=== PATIENT | male | born 1970 | race Caucasian/White ===

== ENCOUNTER 2018-06-29 06:43 | Inpatient (IN) ==
[2018-06-29] MEDS ORDERED: Albuterol 2.5 MG/3 ML NEBULIZER IH ONE (07:19)
[2018-06-29] MEDS ORDERED: CeFAZolin Syr 3,000MG/30 ML 3,000 MG/30 ML SYRINGE IVPB ONE (07:19)
[2018-06-29] MEDS ORDERED: Ringers Solution, Lactated 1,000 ML IVC SCH ×2 (07:30→12:00)
[2018-06-29] MEDS ORDERED: Lidocaine -MPF 2% 2 ML VIAL ONE (07:43)
[2018-06-29] MEDS ORDERED: *HR* Rocuronium Bromide 50 MG/5 ML VIAL ONE ×2 (07:43→10:09)
[2018-06-29] MEDS ORDERED: *HR* Midazolam HCl 2 MG/2 ML VIAL ONE (07:43)
[2018-06-29] MEDS ORDERED: *HR* Succinylcholine 200 MG/10 ML VIAL IVP ONE (07:43)
[2018-06-29] MEDS ORDERED: *HR* FentaNYL (PF) 100 MCG/2 ML VIAL ONE ×3 (07:43→10:07)
[2018-06-29] MEDS ORDERED: *HR* Propofol 200 MG/20 ML VIAL IVP ONE (07:43)
--- NOTE | 2018-06-29 07:49 | Anesthesia Evaluation PreOp ---
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 History: Denies Any Significant HX Other Medical History: Diabetes Type II, GERD Anesthesia History: Past Anesthesia (denies PSH) Alcohol Use: none Drug use: none Medications and Allergies Aspirin [Lo-Dose Aspirin EC] 81 mg PO DAILY 04/05/18 [History] Simvastatin [Zocor] 40 mg PO HS 04/05/18 [History] Lisinopril [Zestril] 10 mg PO DAILY 04/20/18 [History] Pantoprazole Sodium [Protonix] 40 mg PO DAILY 04/20/18 [History] metFORMIN [Glucophage] 500 mg PO BIDWM 04/20/18 [History] Allergy/AdvReac Type Severity Reaction Status Date / Time No Known Allergies Allergy Verified 04/05/18 08:50 - Meds/Allergy Pre-op Review Medications Reviewed: Yes Allergies Reviewed: Yes Beta Blockers on Current Med List: Yes (patient hasn't taken for months) Anesthesia Results - Labs Laboratory Tests 06/15/18 06/15/18 06/15/18 08:13 08:13 08:13 Hgb 15.0 Hct 46.9 Plt Count 284 PT 11.0 INR 1.0 APTT 34.8 Sodium 139 Potassium 4.5 BUN 14 Creatinine 0.91 - Imaging Additional studies: Indications: Coronary artery disease, Dyspnea on Exertion Impressions: Pharmacologic stress ECG and echocardiogram are negative for ischemia. Findings: Study Quality * Technically adequate exam. Resting Echocardiogram * LVEF 55%. * Normal left ventricular structure and function. Stress Echocardiogram * Normal sinus rhythm at rest. * No arrhythmias noted prior to exam beginning. * Negative for ischemia at the level of heart rate achieved. * No arrhythmias during exercise or recovery. * Hypertension at rest, which worsened with stress. * Appropriate increase LVEF with stress. * No chest pain during stress procedure. Anesthesia Exam Selected Entries 06/29/18 07:25 Temperature 98.3 F Pulse Rate 83 Respiratory Rate 18 Blood Pressure 142/88 O2 Sat by Pulse Oximetry 98 Weight: 126kg BMI 40 NPO (# of Hours): 8 - HEENT Pupil (Motor): EOMI Mallampati: II Teeth: Poor dentition Oral Opening: Greater than 3 - LEATHER CURRIER LEATHER CURRIER Motor: Normal RUE, Normal LUE, Normal RLE, Normal LLE, Normal Face LEATHER CURRIER Sensory: Normal: RUE, LUE, RLE, LLE, Face - Cardiac Rhythm: Regular Murmur: None - Pulmonary Breath Sounds: bilateral Clear Respiratory Effort: Symmetrical Anesthesia Assess/Plan ASA Score: 3 Level of consciousness: Cooperative, Oriented, Tranquil Anesthetic Plan: General Monitoring Plan: Standard Monitors, A-Line (possible but not initially) Recovery Plan: PACU (agrees to GA and a-line if needed)
[2018-06-29] MEDS ORDERED: Heparin 1,000 UNITS/500 mL 1,500 ML ONE (07:55)
--- NOTE | 2018-06-29 08:04 | History & Physical Report ---
Date of Encounter: 06/29/18 Time of Encounter: 07:58 24 Hour HP Update - Instructions Instructions: If the History and Physical is less than 30 days old and was completed prior to A.M. admission and or procedure and has NOT been updated on calendar day of procedure please complete this update prior to performing procedure. - Update Patient reports changes in Medical Condition: No Changes in examination, assessment, or condition: No Changes in Medication: No Preop tests/diagnostics Reviewed: Yes Surgery Remains Indicated: Yes Consent for Planned Operative Procedure(s) Verified: Yes - Pre-Operative Checklist Preoperative Checklist Indicated: Yes Prophylactic Antibiotic Ordered: Yes (vancomycin due to risk of MRSA) Home Medications Include Beta Vini: No Beta Vini Taken Today (Day of Surgery): No Beta Vini Taken Yesterday (Day Prior to Surgery): No Is VTE Prophylaxis Indicated?: Yes
[2018-06-29] MEDS ORDERED: Vancomycin 1,000 MG, Sodium Chloride IRRigation 1,000 ML IR ONE (08:15)
[2018-06-29] MEDS ORDERED: Lacri-Lube 3.5 GM TUBE ONE (08:40)
[2018-06-29] MEDS ORDERED: Vancomycin 1,000 MG VIAL ONE (08:40)
[2018-06-29] MEDS ORDERED: Ondansetron 4 MG/2 ML VIAL ONE (08:53)
[2018-06-29] MEDS ORDERED: Dexamethasone 4 MG/ML VIAL ONE (08:53)
[2018-06-29] MEDS ORDERED: EPHEDrine 50 MG/ML VIAL ONE (09:11)
[2018-06-29] MEDS ORDERED: *HR* Heparin 5,000 UNIT/ML VIAL ONE ×2 (10:00→11:56)
[2018-06-29] MEDS ORDERED: *HR* OxyCODONE/APAP 5/325 TABLET PO PRN (11:50)
[2018-06-29] MEDS ORDERED: Ketorolac 30 MG/ML VIAL IVP ONE (11:51)
[2018-06-29] MEDS ORDERED: *HR* HYDROmorphone (PF) 1 MG/ML SYRINGE IVP PRN (11:51)
[2018-06-29] MEDS ORDERED: Acetaminophen IV 1,000 MG/100 ML INFUS..BTL IVPB ONE (11:51)
[2018-06-29] MEDS ORDERED: Acetaminophen IV 1,000 MG/100 ML INFUS..BTL ONE (11:57)
[2018-06-29] MEDS ORDERED: Neostigmine Methylsulfate 3 MG/3 ML SYRINGE ONE (12:58)
[2018-06-29] MEDS ORDERED: *HR* HYDROMORPHONE 2 MG/ML VIAL ONE (13:06)
--- NOTE | 2018-06-29 13:48 | Operative Note ---
Date of procedure: 06/29/18 Pre-op diagnosis: Peripheral vascular disease with disabling claudication Post-op diagnosis: same Procedure: Left common femoral to below-knee popliteal artery bypass graft with reversed left greater saphenous vein. Complications: None Anesthesia: GETA Surgeon: Cristhian Bush Was there an assistant head cashier present: Yes Rail Car Driver: Zion Cota Estimated blood loss (cc): 100 Specimen: None Condition: stable Disposition: PACU Procedure in Detail: Indications: The patient is a 48-year-old male with a history of hypertension, hyperlipidemia, diabetes, coronary artery disease and tobacco abuse. He presented to vascular clinic with with peripheral vascular disease with severe disabling claudication. He underwent an angiogram and was found to have a left superficial femoral artery and proximal popliteal artery occlusion. Procedure: The patient was identified in the preoperative area. The risks, benefits, and alternatives of the procedure were discussed. All questions were answered. The patient was taken to the operating room and placed in supine position on the operating room table. After the induction of general endotracheal anesthesia, he was cleaned and draped in normal sterile fashion. An oblique incision was made over the left groin sharply. Hemostasis was obtained with electrocautery. Through a process of blunt, sharp, and electrocautery dissection, the left femoral vessels were dissected circumferentially and surrounded with vessel loops. A longitudinal incision was made on the left medial calf sharply. Hemostasis was obtained with electrocautery. Through a process of blunt, sharp, and electrocautery dissection, the left a low popliteal artery was dissected proximally and distally and surrounded with vessel loops. Multiple skin incisions were made along the thigh between the two incisions along the saphenous vein. The saphenous vein was completely mobilized with blunt, sharp, and electrocautery dissection. The side branches were clamped, divided, tied off with 3-0 and 4-0 silk sutures. Distally, the vein was mobilized in the calf, clamped, divided, tied off with silk suture ligature and then further completely mobilized through the incisions. The vein was flushed and noted to be adequate in size and consistency for bypass. A tunnel was created between the femoral and popliteal artery incisions. The vein was reversed. Tension was then applied to the femoral vessel loops. An arteriotomy was made in the left common femoral artery and the vein graft was cut to fit the arteriotomy. The graft was anastamosed with a running 6-0 Prolene. After completing the anastomosis, the vessels were reperfused and pulsatile flow was noted through the vein. The vein was marked without torsion and then it was tunneled between the two incisions. After tunneling, the vein was unclamped and was noted to have strong pulsatile flow once again. The vein was then re-clamped with an atraumatic clamp. The popliteal vessels were occluded and a longitudinal arteriotomy was made in the popliteal artery. The distal end of the graft was sutured in place with a running 6-0 Prolene,. The distal arterial anastomosis was completed and prior to completing the closure, the popliteal vessels were flushed and reoccluded. Heparinized saline was infused into the lumen. The anastamosis was tied and then flow was restored. Polyphasic signals were noted distal to the distal anastomosis as well as at the posterior tibial artery. Wounds were irrigated with antibiotic-containing saline. Thrombin and gelfoam were used to aid in hemostasis. Platelet rich and platelet poor plasma were infused into the wounds. Meticulous hemostasis was obtained throughout the wound with electrocautery. Wounds were reapproximated with layers of 2-0 and 3-0 Vicryl. Skin was reapproximated with 3-0 Monocryl. Sterile dressing was applied. The patient was extubated and taken to recovery room in stable condition.
--- NOTE | 2018-06-29 13:56 | Anesthesia Evaluation Post Op ---
Date of Encounter: 06/29/18 Time of Encounter: 13:55 - Vital Signs Vital Signs: Vital Signs/O2 Sat, Most Current Temp Pulse Resp BP Pulse Ox 98.3 F 82 18 132/84 96 06/29/18 13:53 06/29/18 13:53 06/29/18 13:53 06/29/18 13:53 06/29/18 13:53 - Lungs Lungs: Clear Ascult./Percussion - Airway Airway: Non-obstructed - Cardiovascular Regular Rate - Mental Status Mental Status: Alert & Oriented, Answers Appropriately - Pain Pain Scale: 0 Pain Scale used: Numeric (1 - 10) - Nausea Vomiting Nausea Vomiting: Not Present - Hydration Hydration: Ice chips, Han catheter - Discharge PostOp Status: Transfer Patient to floor
[2018-06-29] MEDS ORDERED: Naloxone 0.4 MG/ML INJ IVP PRN (14:14)
[2018-06-29] MEDS ORDERED: OXYCODONE Oral CONC 10 MG/0.5 ML ORAL.SYG SL PRN ×2 (14:14)
[2018-06-29] MEDS ORDERED: *HR* HYDROcodone/Acet 5/325 mg TABLET PO PRN (14:14)
[2018-06-29] MEDS ORDERED: 0.9 % Sodium Chloride 1,000 ML IVC SCH (14:14)
[2018-06-29] MEDS ORDERED: Dextrose Gel 15 GM/37.5 ML TUBE PO PRN ×2 (14:14)
[2018-06-29] MEDS ORDERED: Acetaminophen 325 MG TABLET PO PRN (14:14)
[2018-06-29] MEDS ORDERED: Ondansetron 4 MG/2 ML VIAL IVP PRN (14:14)
[2018-06-29] MEDS ORDERED: *HR* Dextrose 50 % in Water (Syg) 50 ML SYRINGE IVP PRN (14:14)
[2018-06-29] MEDS ORDERED: *HR* OxyCODONE Immed Rel 5 MG TABLET PO PRN (14:14)
[2018-06-29] MEDS ORDERED: D5% in Water 1,000 ML IVC PRN (14:14)
[2018-06-29] MEDS ORDERED: *HR* Labetalol 20 MG/4 ML SYRINGE IVP PRN (14:14)
[2018-06-29] MEDS ORDERED: Dextrose 4 GM Chewable Tablets PO PRN ×2 (14:14)
--- NOTE | 2018-06-29 15:07 | Operative Note ---
Date of procedure: 06/29/18 Pre-op diagnosis: PAD/claudication Post-op diagnosis: same Procedure: left femoral to below knee popliteal bypass graft using reversed greater saphenous vein Complications: 0 Anesthesia: GETA Surgeon: Cristhian Bush Co-Surgeon: Zion Cota Was there an certified physician's assistant present: No Estimated blood loss (cc): 100 Specimen: 0 Condition: stable Disposition: PACU Procedure in Detail: History Arturo Lopez is a 48-year-old white male with bilateral lower extremity occlusive disease involving the superficial femoral arteries. The patient has lifestyle limiting claudication and he now comes to the operating room for surgical bypass for the left lower extremity. Procedure After informed consent was obtained the patient was taken to the operating room. General endotracheal anesthesia was established. The left lower extremity was sterilely prepped and draped. A timeout protocol was observed. A 2 team surgical approach was utilized for this procedure due to the patient's comorbid conditions. Also to enhance intraoperative complex decision-making in to minimize Locations associated with prolonged general endotracheal anesthesia. An incision was then made in the left groin and then in the left below the knee popliteal region simultaneously. Dissections were carried down so that the arteries could be identified and controlled. The below the knee popliteal artery was found to be very lateral and obscured by the musculature making exposure of this vessel difficult. The greater saphenous vein was then identified and dissected along the length of the medial thigh and proximal calf. This vein was found to be suitable for use as a conduit and was therefore divided distally and irrigated and then removed from the left lower extremity through the interrupted incisions. A subsartorial tunnel was then created. 5000 units of heparin were then administered intravenously. After 3 minute delay common femoral artery was clamped. An end of vein to side of artery anastomosis was then created using 6-0 Prolene suture. The vein was then passed through the subsartorial tunnel. Excellent pulsatility was noted. Then the distal anastomosis was created and decide. As noted above the exposure of the popliteals very difficult due to the depth of the artery and the overlying musculature. After appropriate backbleeding and flushing this bypass was opened and pulsatile flow was restored into the left lower extremity. Doppler signals were identified over the dorsalis pedis and posterior tibial artery at the left ankle. The wounds were then irrigated and there were then closed in layers using absorbable suture. Dry sterile dressings were applied. The patient was extubated in the operating room and taken to the recovery room in stable condition. There were no intraoperative complications.
[2018-06-29] MEDS: *HR* Metoprolol 5 MG/5 ML VIAL IVP SCH (16:53)
[2018-06-29] MEDS: Insulin LISPRO 300 UNITS/3 ML VIAL SQ SCH (16:54)
[2018-06-29] MEDS ORDERED: Insulin LISPRO 300 UNITS/3 ML VIAL SQ SCH (21:00)
[2018-06-30] MEDS: *HR* Metoprolol 5 MG/5 ML VIAL IVP SCH ×2 (04:35→05:51)
[2018-06-30] MEDS ORDERED: *HR* Heparin 5,000 UNIT/ML VIAL SQ SCH ×2 (06:00)
--- NOTE | 2018-06-30 06:50 | Discharge Summary ---
Orders not resulted at time of discharge: Pending orders 06/30/18 04:00 Basic Metabolic Panel AM 0400 Complete Blood Count [HEME] AM 0400 Date of Encounter: 06/30/18 Time of Encounter: 07:50 - Discharge Diagnosis (1) Atherosclerosis of cahto arteries of extremities with intermittent claudication, bilateral legs Priority: Primary Status: Chronic Comments: The patient is postoperative day #1 after left femoral to popliteal artery bypass graft. The patient is alert and comfortable. His compartments are soft. His incisions are healing well. He is able to ambulate. He will be discharged today. (2) Mixed hyperlipidemia Priority: Secondary Status: Chronic Comments: The patient was counseled regarding atherosclerotic risk factor reduction. (3) Diabetes mellitus with peripheral angiopathy without gangrene Priority: Secondary Status: Chronic Qualifiers: Diabetes mellitus type: type 2 Diabetes mellitus nursing home insulin use: without regional intermodal truck driver use Qualified Code(s): E11.51 - Type 2 diabetes mellitus with diabetic peripheral angiopathy without gangrene (4) Tobacco abuse Priority: Secondary Status: Chronic (5) Postoperative anemia due to acute blood loss Priority: Secondary Status: Chronic Comments: The patient is a cute extremity postoperative blood loss anemia. He is hemodynamically stable without evidence of ongoing blood loss. - Hospital Course Hospital course: Mr. Lopez is a 48 year old male with a history of diabetes, hyperlipidemia, tobacco abuse and peripheral vascular disease with disabling claudication. The patient was admitted on 06/29/2018. He was taken to the operating room and underwent a left femoral to popliteal artery bypass. He tolerated the procedure well. On postoperative day #1 he was alert and comfortable. His wounds are healing. His compartments are soft. His pain was well-controlled. He was noted to have acute expected postoperative blood loss anemia without evidence of ongoing blood loss. The patient was discharged on postoperative day #1 stable condition without complication. Time spent discussing smoking cessation with patient: 3 to 10 minutes - Time Spent with Patient Total time spent providing and/or coordinating discharge services: - Discharge Medications Prescriptions: New RX: OxyCODONE/APAP 5/325 [Percocet 5/325 MG] 1 each PO Q6HR PRN 7 Days #25 tablet PRN Reason: Postoperative pain Continue RX: Simvastatin [Zocor] 40 mg PO HS RX: Aspirin [Lo-Dose Aspirin EC] 81 mg PO DAILY RX: Lisinopril [Zestril] 10 mg PO DAILY RX: metFORMIN [Glucophage] 500 mg PO BIDWM RX: Pantoprazole Sodium [Protonix] 40 mg PO DAILY RX: hydrOXYzine HCl [Hydroxyzine HCl] 50 mg PO HS PRN PRN Reason: Sleep RX: Melatonin 10 mg PO HS PRN PRN Reason: Sleep Home Medications: RX: Aspirin [Lo-Dose Aspirin EC] 81 mg PO DAILY 04/05/18 [History] RX: Simvastatin [Zocor] 40 mg PO HS 04/05/18 [History] RX: Lisinopril [Zestril] 10 mg PO DAILY 04/20/18 [History] RX: Pantoprazole Sodium [Protonix] 40 mg PO DAILY 04/20/18 [History] RX: metFORMIN [Glucophage] 500 mg PO BIDWM 04/20/18 [History] RX: Melatonin 10 mg PO HS PRN 06/29/18 [History] RX: hydrOXYzine HCl [Hydroxyzine HCl] 50 mg PO HS PRN 06/29/18 [History] RX: OxyCODONE/APAP 5/325 [Percocet 5/325 MG] 1 each PO Q6HR PRN 7 Days #25 tablet 06/30/18 [Rx] Allergies/Adverse Reactions: Allergy/AdvReac Type Severity Reaction Status Date / Time No Known Allergies Allergy Verified 06/29/18 14:23 Date of admission: 06/29/18 14:08 Primary care physician: Torie Serrato CNP Procedure(s) Performed: Left femoral to below-knee popliteal artery bypass graft. Discharging clinician: Cristhian Bush Anticipated date of discharge: 06/30/18 Exam Vital Signs, Last 4 Hours Temp Pulse Resp BP Pulse Ox 06/30/18 04:09 98.4 F 61 20 141/79 96 General: Present: Conversant, No Apparent Distress HEENT: Present: Pupils equal Neck: Absent: JVD Cardiac: Present: Reg Rate and Rhythm Lungs: Present: Normal Breath Sounds Neuro: Present: Alert and responsive Abdomen: Present: Soft Vascular: Present: Normal capillary refill, Pulse, diminished (Right lower extremity), Pulse, normal (Left lower extremity), Surgical incisions (Clean, dry and intact without erythema or drainage, no hematoma). Absent: Cyanosis, Edema Skin: Present: No rashes noted on visualized skin - Patient Status Disposition: Home, Self-Care Condition: Good Functional capacity at discharge: independent ambulation Overall status at discharge: patient is back to baseline - Discharge Instructions Instructions: Oxycodone/Acetaminophen (By mouth), How to Stop Smoking (DC), Cigarette Smoking and Your Health (GEN) Follow Up With: Cristhian Bush MD [Partnered Physician] - 07/19/18 2:30 pm Torie Serrato CNP [Primary Care Provider] - 07/05/18 1:00 pm Additional Instructions: May remove bandages and shower on 07/01/2018. Wash wound gently and pat to dry. No tub baths or swimming until 07/26/2018. Applied dry gauze to wounds daily for 7 days. Call [phone] with questions or concerns. - Diet and Activity Activity: increase activity as tolerated Diet: diabetic diet
[2018-06-30 07:20] LABS: Basophils % 0.1 %; Eosinophils % 0.1 %; Hematocrit 38.7 % (37.5-50.1); Hemoglobin 12.4 g/dL (12.9-16.9); Immature Granulocytes % 0.4 % (0-4); Lymphocytes # 1.4 K/mcL (0.6-4.6); Lymphocytes % 9.8 %; Mean Corpuscular Hemoglobin 26.9 pg (28.0-33.3); Mean Corpuscular Volume 83.9 fL (83.0-100.0); Mean Platelet Volume 9.8 fL (9.4-12.4); Monocytes # 1.4 K/mcL (0.0-1.3); Monocytes % 9.7 %; Neutrophils # 11.5 K/mcL (1.6-8.9); Platelet Count 205 K/mcL (140-400); Red Blood Count 4.61 M/mcL (4.19-5.50); Red Cell Distribution Width 16.9 % (11.5-14.5); Segmented Neutrophils % 79.9 %
[2018-06-30 08:17] VITALS: BP 130/74
[2018-06-30] MEDS: Insulin LISPRO 300 UNITS/3 ML VIAL SQ SCH (08:31)
[2018-06-30] MEDS ORDERED: Aspirin Enteric Coated 81 MG Tablet PO SCH (09:00)
[2018-06-30 09:13] LABS: BUN/Creatinine Ratio 8 (6-26); Blood Urea Nitrogen 7 mg/dL (6-20); Calcium 9.1 mg/dL (8.6-10.3); Carbon Dioxide 26 mEq/L (23-29); Chloride 107 mEq/L (98-107); Glucose 158 mg/dL (70-105); Osmolality,Calculated 289 (280-300); Potassium 4.4 mEq/L (3.5-5.1); Sodium 139 mEq/L (136-145); eGFR For Non-African Americans > 60 (> 60)
== END 2018-06-30 11:52 | disposition home or self-care (01) | DRG 181 ==
LOC: SAMDAY 06:43 → 2NNU 14:08
PROVIDERS: ADMIT Surgery; ATTEND Surgery

== ENCOUNTER 2019-02-07 08:23 | Inpatient (IN) ==
[2019-02-07] MEDS ORDERED: Heparin 1,000 UNITS/500 mL 500 ML ONE (08:47)
[2019-02-07] MEDS ORDERED: Vancomycin 1,000 MG VIAL ONE (08:47)
[2019-02-07] MEDS ORDERED: Vancomycin 1,000 MG, Sodium Chloride IRRigation 1,000 ML IR ONE (09:00)
[2019-02-07] MEDS ORDERED: Albuterol 2.5 MG/3 ML NEBULIZER IH ONE (09:02)
[2019-02-07] MEDS ORDERED: CeFAZolin Syr 2,000MG/20 ML 2,000 MG/20 ML SYRINGE IVPB ONE (09:02)
[2019-02-07] MEDS ORDERED: Ondansetron 4 MG/2 ML VIAL IVP ONE (09:12)
[2019-02-07] MEDS ORDERED: *HR* HYDROmorphone (PF) 1 MG/ML SYRINGE IVP PRN (09:12)
[2019-02-07] MEDS ORDERED: *HR* OxyCODONE Immed Rel 5 MG TABLET PO PRN ×3 (09:12→14:16)
[2019-02-07] MEDS ORDERED: Ringers Solution, Lactated 1,000 ML IVC SCH (09:15)
[2019-02-07] MEDS ORDERED: Calcium Gluconate 1,000 MG/10 ML VIAL ONE (11:06)
[2019-02-07] MEDS ORDERED: *HR* Labetalol 20 MG/4 ML SYRINGE IVP ONE (13:23)
[2019-02-07] MEDS: *HR* Labetalol 20 MG/4 ML SYRINGE IVP PRN ×2 (13:25→13:31)
[2019-02-07] MEDS ORDERED: *HR* HYDROcodone/Acet 5/325 mg TABLET PO PRN ×2 (14:16)
[2019-02-07] MEDS ORDERED: NON-FORMULARY MEDICATION 1 EACH EACH (Diclofenac Sodium [Voltaren] 1 APPL) TP PRN (14:16)
[2019-02-07] MEDS ORDERED: 0.9 % Sodium Chloride 1,000 ML IVC SCH (14:16)
[2019-02-07] MEDS ORDERED: *HR* Labetalol 20 MG/4 ML SYRINGE IVP PRN (14:16)
[2019-02-07] MEDS ORDERED: D5% in Water 1,000 ML IVC PRN (14:16)
[2019-02-07] MEDS ORDERED: Melatonin 3 MG TABLET PO PRN (14:16)
[2019-02-07] MEDS ORDERED: Acetaminophen 325 MG TABLET PO PRN ×2 (14:16)
[2019-02-07] MEDS ORDERED: Ondansetron 4 MG/2 ML VIAL IVP PRN (14:16)
[2019-02-07] MEDS ORDERED: *HR* Dextrose 50 % in Water (Syg) 50 ML SYRINGE IVP PRN (14:16)
[2019-02-07] MEDS ORDERED: Dextrose Gel 15 GM/37.5 ML TUBE PO PRN ×2 (14:16)
[2019-02-07] MEDS ORDERED: Naloxone 0.4 MG/ML INJ IVP PRN (14:16)
[2019-02-07] MEDS: *HR* Metoprolol 5 MG/5 ML VIAL IVP SCH ×3 (15:02→23:51)
[2019-02-07] MEDS: Gabapentin 300 MG CAPSULE PO SCH ×2 (15:03→20:48)
[2019-02-07] MEDS ORDERED: hydrOXYzine pamoate 25 MG CAPSULE PO PRN (21:00)
[2019-02-07] MEDS ORDERED: traZODone 50 MG TABLET PO SCH (21:00)
[2019-02-08 01:09] LABS: BUN/Creatinine Ratio 13 (6-26); Blood Urea Nitrogen 10 mg/dL (6-20); Calcium 8.9 mg/dL (8.6-10.3); Carbon Dioxide 26 mEq/L (23-29); Chloride 105 mEq/L (98-107); Glucose 188 mg/dL (70-105); Osmolality,Calculated 290 (280-300); Potassium 4.4 mEq/L (3.5-5.1); Sodium 138 mEq/L (136-145); eGFR For African Americans > 60 (> 60); eGFR For Non-African Americans > 60 (> 60)
[2019-02-08 01:17] LABS: Basophils % 0.2 %; Hematocrit 40.8 % (37.5-50.1); Immature Granulocytes % 0.7 % (0-4); Lymphocytes # 1.2 K/mcL (0.6-4.6); Mean Corpuscular HGB Conc 29.4 g/dL (31.6-35.5); Mean Corpuscular Volume 78.2 fL (83.0-100.0); Mean Platelet Volume 9.3 fL (9.4-12.4); Monocytes # 0.6 K/mcL (0.0-1.3); Monocytes % 4.1 %; Platelet Count 275 K/mcL (140-400); Red Blood Count 5.22 M/mcL (4.19-5.50); Red Cell Distribution Width 21.2 % (11.5-14.5)
[2019-02-08] MEDS ORDERED: *HR* Heparin 5,000 UNIT/ML VIAL SQ SCH ×2 (06:00)
[2019-02-08] MEDS: *HR* Metoprolol 5 MG/5 ML VIAL IVP SCH (06:26)
[2019-02-08] MEDS: Gabapentin 300 MG CAPSULE PO SCH (07:47)
[2019-02-08 07:53] VITALS: BP 124/85
[2019-02-08] MEDS ORDERED: Aspirin Enteric Coated 81 MG Tablet PO SCH (09:00)
[2019-02-08] MEDS ORDERED: FLU Vac QV 19-20 (6Month+)/PF 0.5 ML SYRINGE IM ONE (10:23)
== END 2019-02-08 11:10 | disposition home or self-care (01) | DRG 169 ==
LOC: SAMDAY 08:23 → 2NNU 14:01
PROVIDERS: ADMIT Surgery; ATTEND Surgery

== ENCOUNTER 2019-03-09 07:52 | Inpatient (IN) ==
[2019-03-09] MEDS ORDERED: Albuterol 2.5 MG/3 ML NEBULIZER IH PRN (08:38)
[2019-03-09] MEDS ORDERED: CeFAZolin Syr 2,000MG/20 ML 2,000 MG/20 ML SYRINGE IVPB ONE (08:38)
[2019-03-09] MEDS ORDERED: Ringers Solution, Lactated 1,000 ML IVC SCH (08:45)
[2019-03-09] MEDS ORDERED: *HR* Midazolam HCl 5 MG/5 ML VIAL IVP ONE (09:26)
[2019-03-09] MEDS ORDERED: *HR* FentaNYL (PF) 100 MCG/2 ML VIAL ONE ×2 (09:26→10:37)
[2019-03-09] MEDS ORDERED: *HR* HYDROmorphone (PF) 1 MG/ML SYRINGE IVP PRN (09:30)
[2019-03-09] MEDS ORDERED: Ondansetron 4 MG/2 ML VIAL IVP ONE (09:30)
[2019-03-09] MEDS ORDERED: *HR* OxyCODONE Immed Rel 5 MG TABLET PO PRN ×2 (09:30→13:35)
[2019-03-09] MEDS ORDERED: Ropivacaine/PF 0.5% 30 ML VIAL ONE ×2 (09:35→09:50)
[2019-03-09] MEDS ORDERED: ROPIVACAINE/PF/NS 0.25% 1 EACH SYRINGE INTRAART ONE (09:36)
[2019-03-09] MEDS ORDERED: Propofol 500 MG/50 ML INFUS..BTL ONE ×2 (09:57→11:33)
[2019-03-09] MEDS ORDERED: Lidocaine -MPF 2% 2 ML VIAL ONE (09:59)
[2019-03-09] MEDS ORDERED: Dexamethasone 4 MG/ML VIAL ONE (10:45)
[2019-03-09] MEDS ORDERED: Ondansetron 4 MG/2 ML VIAL ONE (10:45)
[2019-03-09] MEDS ORDERED: Calcium Gluconate 1,000 MG/10 ML VIAL ONE (10:53)
[2019-03-09] MEDS ORDERED: Vancomycin (wt based) 1,000 MG VIAL IVPB ONE (10:55)
[2019-03-09] MEDS ORDERED: *HR* Propofol 200 MG/20 ML VIAL IVP ONE (12:13)
[2019-03-09] MEDS ORDERED: Vancomycin 1,000 MG, Sodium Chloride IRRigation 1,000 ML IR ONE (13:30)
[2019-03-09] MEDS ORDERED: Naloxone 0.4 MG/ML INJ IVP PRN (13:35)
[2019-03-09] MEDS ORDERED: *HR* Dextrose 50 % in Water (Syg) 50 ML SYRINGE IVP PRN (13:35)
[2019-03-09] MEDS ORDERED: *HR* Labetalol 20 MG/4 ML SYRINGE IVP PRN (13:35)
[2019-03-09] MEDS ORDERED: Acetaminophen 325 MG TABLET PO PRN ×2 (13:35)
[2019-03-09] MEDS ORDERED: 0.9 % Sodium Chloride 1,000 ML IVC SCH (13:35)
[2019-03-09] MEDS ORDERED: Ondansetron 4 MG/2 ML VIAL IVP PRN (13:35)
[2019-03-09] MEDS ORDERED: D5% in Water 1,000 ML IVC PRN (13:35)
[2019-03-09] MEDS ORDERED: *HR* HYDROcodone/Acet 5/325 mg TABLET PO PRN (13:35)
[2019-03-09] MEDS ORDERED: Dextrose Gel 15 GM/37.5 ML TUBE PO PRN ×2 (13:35)
[2019-03-09] MEDS: Gabapentin 300 MG CAPSULE PO SCH ×2 (16:50→20:57)
[2019-03-09] MEDS: *HR* Metoprolol 5 MG/5 ML VIAL IVP SCH (17:17)
[2019-03-09] MEDS: Insulin LISPRO 300 UNITS/3 ML VIAL SQ SCH ×2 (17:22→20:59)
[2019-03-09] MEDS: Ammonium Lactate 30 APPL/225 GM BOTTLE TP SCH (20:57)
[2019-03-09] MEDS: traZODone 50 MG TABLET PO SCH (20:58)
[2019-03-09] MEDS ORDERED: Vancomycin 1,750 MG in 0.9 % Sodium Chloride 250 ML IVPB ONE (21:00)
[2019-03-10] MEDS: *HR* Metoprolol 5 MG/5 ML VIAL IVP SCH ×5 (00:09→23:50)
[2019-03-10 05:16] LABS: Basophils % 0.1 %; Eosinophils % 0.1 %; Hematocrit 36.1 % (37.5-50.1); Hemoglobin 11.1 g/dL (12.9-16.9); Immature Granulocytes % 0.7 % (0-4); Lymphocytes # 0.7 K/mcL (0.6-4.6); Lymphocytes % 5.1 %; Mean Corpuscular HGB Conc 30.7 g/dL (31.6-35.5); Mean Corpuscular Hemoglobin 23.8 pg (28.0-33.3); Mean Corpuscular Volume 77.5 fL (83.0-100.0); Mean Platelet Volume 9.2 fL (9.4-12.4); Monocytes # 0.8 K/mcL (0.0-1.3); Monocytes % 6.1 %; Neutrophils # 11.9 K/mcL (1.6-8.9); Platelet Count 298 K/mcL (140-400); Red Blood Count 4.66 M/mcL (4.19-5.50); Segmented Neutrophils % 87.9 %; White Blood Count 13.5 K/mcL (4.3-11.1)
[2019-03-10 05:35] LABS: BUN/Creatinine Ratio 15 (6-26); Blood Urea Nitrogen 11 mg/dL (6-20); Calcium 9.1 mg/dL (8.6-10.3); Carbon Dioxide 30 mEq/L (23-29); Chloride 101 mEq/L (98-107); Glucose 161 mg/dL (70-105); Osmolality,Calculated 285 (280-300); Potassium 4.6 mEq/L (3.5-5.1); Sodium 136 mEq/L (136-145); eGFR For African Americans > 60 (> 60); eGFR For Non-African Americans > 60 (> 60)
[2019-03-10] MEDS ORDERED: *HR* Heparin 5,000 UNIT/ML VIAL SQ SCH (06:00)
[2019-03-10] MEDS: *HR* Heparin 5,000 UNIT/ML VIAL SQ SCH ×2 (06:19→17:16)
[2019-03-10] MEDS: Aspirin Enteric Coated 81 MG Tablet PO SCH (08:29)
[2019-03-10] MEDS: Gabapentin 300 MG CAPSULE PO SCH ×3 (08:29→20:35)
[2019-03-10] MEDS: Insulin LISPRO 300 UNITS/3 ML VIAL SQ SCH ×4 (08:29→20:29)
[2019-03-10] MEDS: Ammonium Lactate 30 APPL/225 GM BOTTLE TP SCH ×2 (08:30→20:39)
[2019-03-10] MEDS: *HR* OxyCODONE Immed Rel 5 MG TABLET PO PRN ×2 (11:46→20:35)
[2019-03-10] MEDS: *HR* HYDROcodone/Acet 5/325 mg TABLET PO PRN ×2 (17:00→23:53)
[2019-03-10] MEDS: traZODone 50 MG TABLET PO SCH (20:35)
[2019-03-11 04:38] LABS: Hemoglobin 11.1 g/dL (12.9-16.9); Mean Corpuscular HGB Conc 30.8 g/dL (31.6-35.5); Mean Corpuscular Hemoglobin 24.1 pg (28.0-33.3); Mean Corpuscular Volume 78.3 fL (83.0-100.0); Mean Platelet Volume 9.1 fL (9.4-12.4); Platelet Count 283 K/mcL (140-400); Segmented Neutrophils % 71.8 %; White Blood Count 11.6 K/mcL (4.3-11.1)
[2019-03-11 04:39] LABS: Basophils # 0.1 K/mcL (0.0-0.2); Basophils % 0.4 %; Eosinophils # 0.1 K/mcL (0.0-0.6); Eosinophils % 0.4 %; Immature Granulocytes % 0.3 % (0-4); Lymphocytes # 2.1 K/mcL (0.6-4.6); Lymphocytes % 17.8 %; Monocytes # 1.1 K/mcL (0.0-1.3); Monocytes % 9.3 %; Neutrophils # 8.3 K/mcL (1.6-8.9)
[2019-03-11 04:58] LABS: BUN/Creatinine Ratio 14 (6-26); Blood Urea Nitrogen 10 mg/dL (6-20); Calcium 9.2 mg/dL (8.6-10.3); Carbon Dioxide 29 mEq/L (23-29); Chloride 99 mEq/L (98-107); Glucose 126 mg/dL (70-105); Osmolality,Calculated 281 (280-300); Potassium 3.6 mEq/L (3.5-5.1); Sodium 135 mEq/L (136-145); eGFR For African Americans > 60 (> 60); eGFR For Non-African Americans > 60 (> 60)
[2019-03-11] MEDS: *HR* Heparin 5,000 UNIT/ML VIAL SQ SCH ×2 (05:26→16:49)
[2019-03-11] MEDS: *HR* OxyCODONE Immed Rel 5 MG TABLET PO PRN ×3 (05:26→23:27)
[2019-03-11] MEDS: *HR* Metoprolol 5 MG/5 ML VIAL IVP SCH ×4 (05:27→23:30)
[2019-03-11] MEDS: Insulin LISPRO 300 UNITS/3 ML VIAL SQ SCH ×4 (07:36→19:55)
[2019-03-11] MEDS: Gabapentin 300 MG CAPSULE PO SCH ×3 (07:49→19:47)
[2019-03-11] MEDS: Aspirin Enteric Coated 81 MG Tablet PO SCH (07:50)
[2019-03-11] MEDS: Ammonium Lactate 30 APPL/225 GM BOTTLE TP SCH ×2 (07:54→23:07)
[2019-03-11] MEDS: *HR* HYDROcodone/Acet 5/325 mg TABLET PO PRN ×2 (08:02→19:50)
[2019-03-11] MEDS: traZODone 50 MG TABLET PO SCH (19:47)
[2019-03-12] MEDS: *HR* Metoprolol 5 MG/5 ML VIAL IVP SCH (05:50)
[2019-03-12] MEDS: *HR* Heparin 5,000 UNIT/ML VIAL SQ SCH (05:50)
[2019-03-12] MEDS: Insulin LISPRO 300 UNITS/3 ML VIAL SQ SCH ×2 (08:48→11:47)
[2019-03-12] MEDS: Gabapentin 300 MG CAPSULE PO SCH (08:52)
[2019-03-12] MEDS: Aspirin Enteric Coated 81 MG Tablet PO SCH (08:52)
[2019-03-12] MEDS: Ammonium Lactate 30 APPL/225 GM BOTTLE TP SCH (08:53)
[2019-03-12 11:38] VITALS: BP 148/88
== END 2019-03-12 13:27 | DRG 305 ==
LOC: SAMDAY 07:52 → OBSVTOIN 13:31 → 3NENU 13:31 → INTOOBSV 13:31
PROVIDERS: ADMIT Surgery; ATTEND Surgery

== ENCOUNTER 2019-04-19 17:12 | Observation (INO) ==
[2019-04-19] MEDS ORDERED: Acetaminophen 325 MG TABLET PO PRN (23:09)
[2019-04-19] MEDS ORDERED: Naloxone 0.4 MG/ML INJ IVP PRN (23:09)
[2019-04-19] MEDS ORDERED: D5% in Water 1,000 ML IVC PRN (23:44)
[2019-04-19] MEDS ORDERED: Dextrose Gel 15 GM/37.5 ML TUBE PO PRN ×2 (23:44)
[2019-04-19] MEDS ORDERED: *HR* Dextrose 50 % in Water (Syg) 50 ML SYRINGE IVP PRN (23:44)
[2019-04-20] MEDS: Piperacillin/Tazobactam 3.375 GM in 0.9 % Sodium Chloride Mini Bag 100 ML IVPB SCH ×3 (00:54→17:34)
[2019-04-20 01:03] LABS: Basophils # 0.1 K/mcL (0.0-0.2); Basophils % 1.1 %; Eosinophils # 0.1 K/mcL (0.0-0.6); Eosinophils % 1.8 %; Hematocrit 40.5 % (37.5-50.1); Hemoglobin 12.7 g/dL (12.9-16.9); Immature Granulocytes % 0.3 % (0-4); Immature Platelets 3.2 % (1.1-6.1); Lymphocytes % 13.7 %; Mean Corpuscular HGB Conc 31.4 g/dL (31.6-35.5); Mean Corpuscular Hemoglobin 23.6 pg (28.0-33.3); Mean Corpuscular Volume 75.4 fL (83.0-100.0); Mean Platelet Volume 9.5 fL (9.4-12.4); Monocytes # 1.1 K/mcL (0.0-1.3); Monocytes % 15.4 %; Platelet Count 233 K/mcL (140-400); Red Blood Count 5.37 M/mcL (4.19-5.50); Red Cell Distribution Width 18.6 % (11.5-14.5); Segmented Neutrophils % 67.7 %; White Blood Count 7.4 K/mcL (4.3-11.1)
[2019-04-20 01:06] LABS: BUN/Creatinine Ratio 10 (6-26); Blood Urea Nitrogen 8 mg/dL (6-20); Calcium 9.6 mg/dL (8.6-10.3); Carbon Dioxide 30 mEq/L (23-29); Chloride 97 mEq/L (98-107); Glucose 97 mg/dL (70-105); Osmolality,Calculated 278 (280-300); Potassium 4.1 mEq/L (3.5-5.1); Sodium 135 mEq/L (136-145); eGFR For African Americans > 60 (> 60); eGFR For Non-African Americans > 60 (> 60)
[2019-04-20] MEDS: Insulin LISPRO 300 UNITS/3 ML VIAL SQ SCH ×5 (01:14→17:34)
[2019-04-20] MEDS: traZODone 50 MG TABLET PO SCH ×2 (01:37→22:06)
[2019-04-20] MEDS: *HR* Heparin 5,000 UNIT/ML VIAL SQ SCH ×3 (06:08→22:07)
[2019-04-20] MEDS: Ipratropium/Albuterol Neb 3 ML IH SCH ×3 (09:52→22:38)
[2019-04-20] MEDS: predniSONE 20 MG TABLET PO SCH (10:15)
[2019-04-20] MEDS: Aspirin Enteric Coated 81 MG Tablet PO SCH (10:16)
[2019-04-20] MEDS: Gabapentin 300 MG CAPSULE PO SCH ×3 (10:16→22:06)
[2019-04-20] MEDS ORDERED: Insulin LISPRO 300 UNITS/3 ML VIAL SQ SCH (16:30)
[2019-04-21] MEDS: Piperacillin/Tazobactam 3.375 GM in 0.9 % Sodium Chloride Mini Bag 100 ML IVPB SCH ×2 (01:03→09:08)
[2019-04-21] MEDS: Ipratropium/Albuterol Neb 3 ML IH SCH ×2 (04:19→09:53)
[2019-04-21] MEDS: *HR* Heparin 5,000 UNIT/ML VIAL SQ SCH ×2 (06:40→16:16)
[2019-04-21 07:19] LABS: Basophils % 0.5 %; Eosinophils % 0.3 %; Hematocrit 40.9 % (37.5-50.1); Hemoglobin 12.5 g/dL (12.9-16.9); Immature Granulocytes % 0.3 % (0-4); Lymphocytes # 1.5 K/mcL (0.6-4.6); Lymphocytes % 23.2 %; Mean Corpuscular HGB Conc 30.6 g/dL (31.6-35.5); Mean Corpuscular Hemoglobin 23.3 pg (28.0-33.3); Mean Corpuscular Volume 76.3 fL (83.0-100.0); Mean Platelet Volume 9.5 fL (9.4-12.4); Monocytes # 0.6 K/mcL (0.0-1.3); Monocytes % 9.4 %; Neutrophils # 4.3 K/mcL (1.6-8.9); Platelet Count 304 K/mcL (140-400); Red Blood Count 5.36 M/mcL (4.19-5.50); Segmented Neutrophils % 66.3 %; White Blood Count 6.5 K/mcL (4.3-11.1)
[2019-04-21 07:23] LABS: Prothrombin Time 11.3 Seconds (9.4-12.1)
[2019-04-21 07:46] LABS: BUN/Creatinine Ratio 11 (6-26); Blood Urea Nitrogen 10 mg/dL (6-20); Calcium 9.1 mg/dL (8.6-10.3); Carbon Dioxide 29 mEq/L (23-29); Chloride 100 mEq/L (98-107); Glucose 122 mg/dL (70-105); Osmolality,Calculated 290 (280-300); Potassium 3.3 mEq/L (3.5-5.1); Sodium 140 mEq/L (136-145); eGFR For African Americans > 60 (> 60); eGFR For Non-African Americans > 60 (> 60)
[2019-04-21] MEDS: predniSONE 20 MG TABLET PO SCH (09:09)
[2019-04-21] MEDS: Aspirin Enteric Coated 81 MG Tablet PO SCH (09:09)
[2019-04-21] MEDS: Gabapentin 300 MG CAPSULE PO SCH ×2 (09:09→16:16)
[2019-04-21] MEDS: Insulin LISPRO 300 UNITS/3 ML VIAL SQ SCH ×3 (09:10→17:53)
[2019-04-21 16:06] VITALS: BP 145/86
[2019-04-21] MEDS ORDERED: Aminoglycoside Consult 1 EACH MC ONE (18:22)
== END 2019-04-21 18:23 | disposition home health service (06) ==
LOC: 3ANU → SUATTDRO 19:05
PROVIDERS: ADMIT Internal Medicine; ATTEND Internal Medicine

== ENCOUNTER 2019-06-02 10:03 | Inpatient (IN) ==
[2019-06-02] MEDS ORDERED: Piperacillin/Tazobactam 3.375 GM in Water for inj. (sterile) 20 ML IVP ONE (10:27)
[2019-06-02] MEDS ORDERED: 0.9 % Sodium Chloride 1,000 ML IVC ONE (10:27)
[2019-06-02] MEDS ORDERED: Morphine Sulfate 2 MG/ML SYRINGE IVP ONE ×3 (10:28→15:57)
[2019-06-02] MEDS ORDERED: Isovue-370 500 ML BOTTLE IVP ONE ×2 (10:46→13:50)
[2019-06-02 11:55] LABS: Basophils # 0.1 K/mcL (0.0-0.2); Basophils % 1.1 %; Eosinophils # 0.2 K/mcL (0.0-0.6); Eosinophils % 1.4 %; Hematocrit 40.7 % (37.5-50.1); Hemoglobin 12.8 g/dL (12.9-16.9); Immature Granulocytes % 0.5 % (0-4); Lymphocytes # 1.8 K/mcL (0.6-4.6); Lymphocytes % 16.7 %; Mean Corpuscular HGB Conc 31.4 g/dL (31.6-35.5); Mean Corpuscular Hemoglobin 23.3 pg (28.0-33.3); Mean Corpuscular Volume 74.1 fL (83.0-100.0); Mean Platelet Volume 9.4 fL (9.4-12.4); Monocytes % 9.2 %; Neutrophils # 7.9 K/mcL (1.6-8.9); Platelet Count 404 K/mcL (140-400); Red Blood Count 5.49 M/mcL (4.19-5.50); Red Cell Distribution Width 19.2 % (11.5-14.5); Segmented Neutrophils % 71.1 %
[2019-06-02 12:00] LABS: Prothrombin Time 11.9 Seconds (9.4-12.1)
[2019-06-02 12:03] LABS: Activated Partial Thrombo Time 32.7 Seconds (26.0-36.0)
[2019-06-02 12:15] LABS: Alanine Aminotransferase 8 Units/L (7-52); Albumin 3.9 g/dL (3.5-5.7); Albumin/Globulin Ratio 1.3 (1.1-2.2); Alkaline Phosphatase 89 Units/L (34-104); Aspartate Amino Transferase 10 Units/L (13-39); BUN/Creatinine Ratio 6 (6-26); Bilirubin,Direct 0.1 mg/dL (0.0-0.2); Bilirubin,Indirect 0.1 mg/dL (0.0-1.0); Bilirubin,Total 0.2 mg/dL (0.3-1.0); Blood Urea Nitrogen 5 mg/dL (6-20); Carbon Dioxide 29 mEq/L (23-29); Chloride 99 mEq/L (98-107); Globulin 2.9 g/dL (2.4-3.5); Glucose 125 mg/dL (70-105); Magnesium 1.9 mg/dL (1.6-2.6); Osmolality,Calculated 281 (280-300); Sodium 136 mEq/L (136-145); Total Protein 6.8 g/dL (6.4-8.9); Troponin I < 0.03 ng/mL (< 0.04); eGFR For African Americans > 60 (> 60); eGFR For Non-African Americans > 60 (> 60)
[2019-06-02] MEDS ORDERED: Naloxone 0.4 MG/ML INJ IVP PRN (15:20)
[2019-06-02 15:51] LABS: C-Reactive Protein 20 mg/L (Less than 10)
[2019-06-02] MEDS ORDERED: Vancomycin 0 MG in 0.9 % Sodium Chloride 250 ML IVPB SCH (16:00)
[2019-06-02] MEDS ORDERED: Nicotine 21 MG PATCH.TD24 TD PRN (16:10)
[2019-06-02] MEDS ORDERED: D5% in Water 1,000 ML IVC PRN (16:10)
[2019-06-02] MEDS ORDERED: *HR* Dextrose 50 % in Water (Syg) 50 ML SYRINGE IVP PRN (16:10)
[2019-06-02] MEDS ORDERED: Dextrose Gel 15 GM/37.5 ML TUBE PO PRN ×2 (16:10)
[2019-06-02] MEDS ORDERED: tiZANidine 4 MG TABLET PO PRN (16:11)
[2019-06-02] MEDS ORDERED: Ipratropium/Albuterol Neb 3 ML IH PRN (16:12)
[2019-06-02] MEDS: Insulin LISPRO 300 UNITS/3 ML VIAL SQ SCH ×2 (18:14→20:58)
[2019-06-02] MEDS: *HR* Heparin 5,000 UNIT/ML VIAL SQ SCH (18:21)
[2019-06-02] MEDS: traZODone 50 MG TABLET PO SCH (20:41)
[2019-06-02] MEDS: Gabapentin 400 MG CAPSULE PO SCH (20:42)
[2019-06-02] MEDS: Piperacillin/Tazobactam 3.375 GM in 0.9 % Sodium Chloride Mini Bag 100 ML IVPB SCH (20:42)
[2019-06-02] MEDS: Ketorolac 30 MG/ML VIAL IVP PRN (20:46)
[2019-06-03] MEDS: Piperacillin/Tazobactam 3.375 GM in 0.9 % Sodium Chloride Mini Bag 100 ML IVPB SCH ×3 (04:33→22:08)
[2019-06-03 05:43] LABS: Basophils # 0.1 K/mcL (0.0-0.2); Basophils % 1.1 %; Eosinophils # 0.3 K/mcL (0.0-0.6); Eosinophils % 4.5 %; Hematocrit 38.2 % (37.5-50.1); Hemoglobin 11.6 g/dL (12.9-16.9); Immature Granulocytes % 0.3 % (0-4); Lymphocytes # 1.7 K/mcL (0.6-4.6); Lymphocytes % 24.2 %; Mean Corpuscular HGB Conc 30.4 g/dL (31.6-35.5); Mean Corpuscular Hemoglobin 22.9 pg (28.0-33.3); Mean Corpuscular Volume 75.3 fL (83.0-100.0); Mean Platelet Volume 9.1 fL (9.4-12.4); Monocytes # 0.8 K/mcL (0.0-1.3); Monocytes % 10.6 %; Neutrophils # 4.2 K/mcL (1.6-8.9); Platelet Count 370 K/mcL (140-400); Red Blood Count 5.07 M/mcL (4.19-5.50); Segmented Neutrophils % 59.3 %; White Blood Count 7.1 K/mcL (4.3-11.1)
[2019-06-03 06:03] LABS: BUN/Creatinine Ratio 9 (6-26); Blood Urea Nitrogen 9 mg/dL (6-20); Calcium 8.8 mg/dL (8.6-10.3); Carbon Dioxide 31 mEq/L (23-29); Chloride 101 mEq/L (98-107); Glucose 121 mg/dL (70-105); Osmolality,Calculated 284 (280-300); Potassium 4.3 mEq/L (3.5-5.1); Sodium 137 mEq/L (136-145); eGFR For African Americans > 60 (> 60); eGFR For Non-African Americans > 60 (> 60)
[2019-06-03] MEDS: *HR* Heparin 5,000 UNIT/ML VIAL SQ SCH (06:22)
[2019-06-03] MEDS: Gabapentin 400 MG CAPSULE PO SCH ×3 (09:23→22:09)
[2019-06-03] MEDS: Aspirin Enteric Coated 81 MG Tablet PO SCH (09:23)
[2019-06-03] MEDS: Insulin LISPRO 300 UNITS/3 ML VIAL SQ SCH ×4 (09:24→22:21)
[2019-06-03] MEDS ORDERED: *HR* Heparin 5,000 UNIT/ML VIAL IVP PRN ×2 (12:01)
[2019-06-03] MEDS ORDERED: *HR* Heparin 5,000 UNIT/ML VIAL IVP ONE (12:01)
[2019-06-03 12:58] LABS: Hematocrit 39.2 % (37.5-50.1); Hemoglobin 11.6 g/dL (12.9-16.9); Mean Corpuscular HGB Conc 29.6 g/dL (31.6-35.5); Mean Corpuscular Hemoglobin 23.3 pg (28.0-33.3); Mean Corpuscular Volume 78.7 fL (83.0-100.0); Mean Platelet Volume 8.5 fL (9.4-12.4); Platelet Count 345 K/mcL (140-400); Red Blood Count 4.98 M/mcL (4.19-5.50); Red Cell Distribution Width 18.6 % (11.5-14.5); White Blood Count 7.9 K/mcL (4.3-11.1)
[2019-06-03 13:24] LABS: Prothrombin Time 11.4 Seconds (9.4-12.1)
[2019-06-03] MEDS: Heparin 25,000 UNIT/250 ML D5W 25,000 UNIT/250 ML IV.SOLN IVC SCH (13:38)
[2019-06-03] MEDS: traZODone 50 MG TABLET PO SCH (22:09)
[2019-06-03] MEDS: Insulin DETEMIR 100 UNIT/ML X5UNITS SQ SCH (22:10)
[2019-06-04] MEDS: Ketorolac 30 MG/ML VIAL IVP PRN (00:07)
[2019-06-04] MEDS: Piperacillin/Tazobactam 3.375 GM in 0.9 % Sodium Chloride Mini Bag 100 ML IVPB SCH ×2 (03:52→13:40)
[2019-06-04] MEDS: Heparin 25,000 UNIT/250 ML D5W 25,000 UNIT/250 ML IV.SOLN IVC SCH ×2 (06:00→23:02)
[2019-06-04] MEDS: Insulin LISPRO 300 UNITS/3 ML VIAL SQ SCH ×4 (07:41→19:55)
[2019-06-04] MEDS: Aspirin Enteric Coated 81 MG Tablet PO SCH (07:52)
[2019-06-04] MEDS: Gabapentin 400 MG CAPSULE PO SCH ×3 (07:52→20:07)
[2019-06-04] MEDS ORDERED: Aminoglycoside Consult 1 EACH MC ONE (08:36)
[2019-06-04] MEDS: traZODone 50 MG TABLET PO SCH (20:07)
[2019-06-04] MEDS: Insulin DETEMIR 100 UNIT/ML X5UNITS SQ SCH (20:11)
[2019-06-05 05:24] LABS: Basophils # 0.1 K/mcL (0.0-0.2); Eosinophils # 0.3 K/mcL (0.0-0.6); Eosinophils % 3.8 %; Hematocrit 38.8 % (37.5-50.1); Immature Granulocytes % 0.5 % (0-4); Lymphocytes # 1.5 K/mcL (0.6-4.6); Lymphocytes % 18.9 %; Mean Corpuscular HGB Conc 30.9 g/dL (31.6-35.5); Mean Corpuscular Hemoglobin 22.8 pg (28.0-33.3); Mean Corpuscular Volume 73.8 fL (83.0-100.0); Mean Platelet Volume 9.1 fL (9.4-12.4); Monocytes # 0.7 K/mcL (0.0-1.3); Monocytes % 8.3 %; Neutrophils # 5.3 K/mcL (1.6-8.9); Platelet Count 404 K/mcL (140-400); Red Blood Count 5.26 M/mcL (4.19-5.50); Red Cell Distribution Width 18.6 % (11.5-14.5); Segmented Neutrophils % 67.5 %; White Blood Count 7.8 K/mcL (4.3-11.1)
[2019-06-05 05:44] LABS: BUN/Creatinine Ratio 7 (6-26); Blood Urea Nitrogen 6 mg/dL (6-20); Calcium 9.5 mg/dL (8.6-10.3); Carbon Dioxide 29 mEq/L (23-29); Chloride 100 mEq/L (98-107); Glucose 111 mg/dL (70-105); Magnesium 1.8 mg/dL (1.6-2.6); Osmolality,Calculated 280 (280-300); Phosphorous 3.4 mg/dL (2.7-4.5); Potassium 4.3 mEq/L (3.5-5.1); Sodium 136 mEq/L (136-145); eGFR For African Americans > 60 (> 60); eGFR For Non-African Americans > 60 (> 60)
[2019-06-05] MEDS: Insulin LISPRO 300 UNITS/3 ML VIAL SQ SCH ×4 (07:44→22:42)
[2019-06-05] MEDS: Gabapentin 400 MG CAPSULE PO SCH ×3 (08:35→20:02)
[2019-06-05] MEDS: Aspirin Enteric Coated 81 MG Tablet PO SCH (08:35)
[2019-06-05] MEDS: Ketorolac 30 MG/ML VIAL IVP PRN (09:42)
[2019-06-05] MEDS: Heparin 25,000 UNIT/250 ML D5W 25,000 UNIT/250 ML IV.SOLN IVC SCH (16:38)
[2019-06-05] MEDS: traZODone 50 MG TABLET PO SCH (20:02)
[2019-06-05] MEDS: Insulin DETEMIR 100 UNIT/ML X5UNITS SQ SCH (22:42)
[2019-06-06] MEDS ORDERED: Vancomycin 1,000 MG, Sodium Chloride IRRigation 1,000 ML IR ONE (06:00)
[2019-06-06] MEDS: Insulin LISPRO 300 UNITS/3 ML VIAL SQ SCH ×2 (08:31→11:51)
[2019-06-06] MEDS ORDERED: *HR* Rocuronium Bromide 50 MG/5 ML VIAL ONE (10:11)
[2019-06-06] MEDS ORDERED: Lidocaine -MPF 2% 2 ML VIAL ONE (10:11)
[2019-06-06] MEDS ORDERED: Dexamethasone 4 MG/ML VIAL ONE (10:11)
[2019-06-06] MEDS ORDERED: *HR* Phenylephrine 10 MG/ML VIAL ONE (10:11)
[2019-06-06] MEDS ORDERED: Ondansetron 4 MG/2 ML VIAL ONE (10:11)
[2019-06-06] MEDS ORDERED: *HR* Propofol 200 MG/20 ML VIAL IVP ONE (10:28)
[2019-06-06] MEDS ORDERED: *HR* FentaNYL (PF) 100 MCG/2 ML VIAL ONE ×3 (10:40→17:29)
[2019-06-06] MEDS ORDERED: *HR* Midazolam HCl 2 MG/2 ML VIAL ONE (10:40)
[2019-06-06] MEDS ORDERED: *HR* OxyCODONE Immed Rel 5 MG TABLET PO PRN ×2 (11:41→18:32)
[2019-06-06] MEDS ORDERED: Ondansetron 4 MG/2 ML VIAL IVP ONE (11:41)
[2019-06-06] MEDS ORDERED: *HR* HYDROmorphone (PF) 1 MG/ML SYRINGE IVP PRN (11:41)
[2019-06-06] MEDS ORDERED: Ringers Solution, Lactated 1,000 ML IVC SCH (11:45)
[2019-06-06] MEDS: Gabapentin 400 MG CAPSULE PO SCH ×2 (11:50→22:16)
[2019-06-06] MEDS: Aspirin Enteric Coated 81 MG Tablet PO SCH (11:50)
[2019-06-06] MEDS ORDERED: Heparin 1,000 UNITS/500 mL 1,000 ML ONE (11:56)
[2019-06-06] MEDS ORDERED: Vancomycin 1,000 MG VIAL ONE ×2 (12:14→12:21)
[2019-06-06] MEDS ORDERED: Heparin 1,000 UNITS/500 mL 500 ML ONE (12:14)
[2019-06-06] MEDS ORDERED: CeFAZolin Syr 3,000MG/30 ML 3,000 MG/30 ML SYRINGE IVPB ONE (12:46)
[2019-06-06] MEDS ORDERED: *HR* Heparin 5,000 UNIT/ML VIAL ONE ×2 (14:57→15:53)
[2019-06-06 14:59] LABS: ABG Base Excess 5 mEq/L (-2 to 3); ABG HCO3 30 mEq/L (21-27); ABG Oxygen Saturation 98 % (95-98); ABG PCO2 46 mmHg (35-45); ABG PH 7.42 pH Units (7.32-7.45); ABG PO2 101 mmHg (85-104); ABG TCO2 31 mEq/L (20-26); Blood Gas Modality ASSIST CONTROL; Blood Gas VT 500 cc
[2019-06-06] MEDS ORDERED: Ringers Solution, Lactated 1,000 ML ONE (17:58)
[2019-06-06] MEDS ORDERED: Ipratropium/Albuterol Neb 3 ML IH PRN (18:32)
[2019-06-06] MEDS ORDERED: Dextrose Gel 15 GM/37.5 ML TUBE PO PRN ×2 (18:32)
[2019-06-06] MEDS ORDERED: tiZANidine 4 MG TABLET PO PRN (18:32)
[2019-06-06] MEDS ORDERED: *HR* HYDROcodone/Acet 5/325 mg TABLET PO PRN ×2 (18:32)
[2019-06-06] MEDS ORDERED: D5% in Water 1,000 ML IVC PRN (18:32)
[2019-06-06] MEDS ORDERED: *HR* Labetalol 20 MG/4 ML SYRINGE IVP PRN (18:32)
[2019-06-06] MEDS ORDERED: Acetaminophen 325 MG TABLET PO PRN ×2 (18:32)
[2019-06-06] MEDS ORDERED: Naloxone 0.4 MG/ML INJ IVP PRN (18:32)
[2019-06-06] MEDS ORDERED: 0.9 % Sodium Chloride 1,000 ML IVC SCH (18:32)
[2019-06-06] MEDS ORDERED: Ondansetron 4 MG/2 ML VIAL IVP PRN (18:32)
[2019-06-06] MEDS ORDERED: Nicotine 21 MG PATCH.TD24 TD PRN (18:32)
[2019-06-06] MEDS ORDERED: *HR* Dextrose 50 % in Water (Syg) 50 ML SYRINGE IVP PRN (18:32)
[2019-06-06] MEDS ORDERED: hydrOXYzine pamoate 25 MG CAPSULE PO SCH (21:00)
[2019-06-06] MEDS ORDERED: traZODone 50 MG TABLET PO SCH (21:00)
[2019-06-06] MEDS ORDERED: Insulin LISPRO 300 UNITS/3 ML VIAL SQ SCH (21:00)
[2019-06-06] MEDS ORDERED: Insulin DETEMIR 100 UNIT/ML X5UNITS SQ SCH (21:00)
[2019-06-06] MEDS: *HR* Metoprolol 5 MG/5 ML VIAL IVP SCH (22:14)
[2019-06-06] MEDS: ceFAZolin 2,000 MG in 0.9 % Sodium Chloride 100 ML IVPB SCH (22:16)
[2019-06-07] MEDS: *HR* OxyCODONE Immed Rel 5 MG TABLET PO PRN ×2 (00:10→11:58)
[2019-06-07 02:28] LABS: Basophils % 0.3 %; Immature Granulocytes % 0.6 % (0-4); Lymphocytes # 1.1 K/mcL (0.6-4.6); Lymphocytes % 9.1 %; Mean Corpuscular HGB Conc 30.6 g/dL (31.6-35.5); Mean Corpuscular Hemoglobin 22.7 pg (28.0-33.3); Mean Corpuscular Volume 74.2 fL (83.0-100.0); Monocytes # 0.9 K/mcL (0.0-1.3); Monocytes % 7.9 %; Neutrophils # 9.6 K/mcL (1.6-8.9); Platelet Count 350 K/mcL (140-400); Red Blood Count 4.31 M/mcL (4.19-5.50); Red Cell Distribution Width 18.3 % (11.5-14.5); Segmented Neutrophils % 82.1 %; White Blood Count 11.7 K/mcL (4.3-11.1)
[2019-06-07 02:37] LABS: BUN/Creatinine Ratio 9 (6-26); Blood Urea Nitrogen 6 mg/dL (6-20); Calcium 8.6 mg/dL (8.6-10.3); Carbon Dioxide 27 mEq/L (23-29); Chloride 101 mEq/L (98-107); Glucose 115 mg/dL (70-105); Osmolality,Calculated 277 (280-300); Potassium 4.3 mEq/L (3.5-5.1); Sodium 134 mEq/L (136-145); eGFR For African Americans > 60 (> 60); eGFR For Non-African Americans > 60 (> 60)
[2019-06-07 02:45] LABS: Hemoglobin 9.8 g/dL (12.9-16.9)
[2019-06-07] MEDS: ceFAZolin 2,000 MG in 0.9 % Sodium Chloride 100 ML IVPB SCH (05:27)
[2019-06-07] MEDS: *HR* Metoprolol 5 MG/5 ML VIAL IVP SCH ×2 (05:28→11:58)
[2019-06-07] MEDS: Insulin LISPRO 300 UNITS/3 ML VIAL SQ SCH ×2 (08:17→11:58)
[2019-06-07] MEDS: Gabapentin 400 MG CAPSULE PO SCH (08:29)
[2019-06-07] MEDS ORDERED: Aspirin Enteric Coated 81 MG Tablet PO SCH (09:00)
[2019-06-07 11:14] VITALS: BP 161/93
== END 2019-06-07 13:34 | disposition home or self-care (01) | DRG 181 ==
LOC: 2NNU 10:03 → EMEROOARM 10:03 → SUATTDRO 16:08 → 2NNU 17:52
PROVIDERS: ADMIT Internal Medicine; ATTEND Internal Medicine

== ENCOUNTER 2019-07-13 09:07 | Inpatient (IN) ==
[2019-07-13] MEDS ORDERED: 0.9 % Sodium Chloride 1,000 ML IVC ONE (09:53)
[2019-07-13 10:13] LABS: Hematocrit 38.5 % (37.5-50.1); Hemoglobin 11.4 g/dL (12.9-16.9); Mean Corpuscular HGB Conc 29.6 g/dL (31.6-35.5); Mean Corpuscular Hemoglobin 22.3 pg (28.0-33.3); Mean Corpuscular Volume 75.2 fL (83.0-100.0); Mean Platelet Volume 9.2 fL (9.4-12.4); Platelet Count 353 K/mcL (140-400); Red Blood Count 5.12 M/mcL (4.19-5.50); Red Cell Distribution Width 18.6 % (11.5-14.5); White Blood Count 10.3 K/mcL (4.3-11.1)
[2019-07-13 10:32] LABS: BUN/Creatinine Ratio 9 (6-26); Blood Urea Nitrogen 7 mg/dL (6-20); Calcium 9.9 mg/dL (8.6-10.3); Carbon Dioxide 27 mEq/L (23-29); Chloride 99 mEq/L (98-107); Glucose 98 mg/dL (70-105); Osmolality,Calculated 276 (280-300); Potassium 4.5 mEq/L (3.5-5.1); Sodium 134 mEq/L (136-145); eGFR For African Americans > 60 (> 60); eGFR For Non-African Americans > 60 (> 60)
[2019-07-13] MEDS ORDERED: Piperacillin/Tazobactam 3.375 GM in 0.9 % Sodium Chloride Mini Bag 100 ML IVPB ONE (11:27)
[2019-07-13] MEDS ORDERED: Clindamycin 900 MG/50 ML 900 MG/50 ML IV.SOLN IVPB ONE (11:41)
[2019-07-13] MEDS: Gabapentin 400 MG CAPSULE PO SCH ×2 (13:50→20:29)
[2019-07-13] MEDS: *HR* OxyCODONE/APAP 10/325 TABLET PO PRN ×2 (14:48→20:56)
[2019-07-13] MEDS: Insulin LISPRO 300 UNITS/3 ML VIAL SQ SCH (15:39)
[2019-07-13] MEDS ORDERED: Clindamycin 600 MG/50 ML 600 MG/50 ML IV.SOLN IVPB SCH (16:00)
[2019-07-13] MEDS: Piperacillin/Tazobactam 3.375 GM in 0.9 % Sodium Chloride Mini Bag 100 ML IVPB SCH (20:35)
[2019-07-13] MEDS: Clindamycin 600 MG/50 ML 600 MG/50 ML IV.SOLN IVPB SCH (20:58)
[2019-07-13] MEDS ORDERED: traZODone 50 MG TABLET PO SCH (21:00)
[2019-07-13] MEDS ORDERED: hydrOXYzine pamoate 25 MG CAPSULE PO SCH (21:00)
[2019-07-13] MEDS ORDERED: Insulin LISPRO 300 UNITS/3 ML VIAL SQ SCH (21:00)
[2019-07-13] MEDS: *HR* Heparin 5,000 UNIT/ML VIAL SQ SCH (21:02)
[2019-07-14] MEDS: *HR* OxyCODONE/APAP 10/325 TABLET PO PRN ×2 (02:53→11:10)
[2019-07-14] MEDS: Piperacillin/Tazobactam 3.375 GM in 0.9 % Sodium Chloride Mini Bag 100 ML IVPB SCH ×2 (04:26→11:11)
[2019-07-14] MEDS: *HR* Heparin 5,000 UNIT/ML VIAL SQ SCH ×3 (05:10→22:38)
[2019-07-14] MEDS: Clindamycin 600 MG/50 ML 600 MG/50 ML IV.SOLN IVPB SCH ×3 (05:18→22:37)
[2019-07-14] MEDS: Gabapentin 400 MG CAPSULE PO SCH ×3 (07:17→22:40)
[2019-07-14] MEDS: Insulin LISPRO 300 UNITS/3 ML VIAL SQ SCH ×4 (07:17→22:42)
[2019-07-14] MEDS ORDERED: Vancomycin 1,000 MG, Sodium Chloride IRRigation 1,000 ML IR ONE (08:00)
[2019-07-14] MEDS ORDERED: Aspirin Enteric Coated 81 MG Tablet PO SCH (09:00)
[2019-07-14] MEDS ORDERED: Albuterol 2.5 MG/3 ML NEBULIZER IH ONE (16:20)
[2019-07-14] MEDS ORDERED: Albuterol 2.5 MG/3 ML NEBULIZER ONE (16:21)
[2019-07-14] MEDS ORDERED: *HR* Propofol 200 MG/20 ML VIAL IVP ONE ×2 (16:42→17:29)
[2019-07-14] MEDS ORDERED: Lidocaine HCL 4 ML Topical Solution (Laryng-O-Jet Kit Sterile Pak) TP ONE (17:29)
[2019-07-14] MEDS ORDERED: *HR* FentaNYL (PF) 100 MCG/2 ML VIAL ONE ×2 (17:29→18:16)
[2019-07-14] MEDS ORDERED: Lidocaine -MPF 2% 2 ML VIAL ONE (17:29)
[2019-07-14] MEDS ORDERED: *HR* Succinylcholine 200 MG/10 ML VIAL IVP ONE (17:29)
[2019-07-14] MEDS ORDERED: *HR* HYDROmorphone PF 0.5 MG/0.5 ML SYRINGE IVP PRN (17:36)
[2019-07-14] MEDS ORDERED: Ondansetron 4 MG/2 ML VIAL IVP ONE (17:36)
[2019-07-14] MEDS ORDERED: *HR* Promethazine 25 MG/ML VIAL IVP PRN (17:36)
[2019-07-14] MEDS ORDERED: *HR* Labetalol 20 MG/4 ML SYRINGE IVP PRN ×2 (17:36→20:29)
[2019-07-14] MEDS ORDERED: *HR* HYDROmorphone (PF) 1 MG/ML SYRINGE IVP PRN (17:45)
[2019-07-14] MEDS ORDERED: Famotidine 20 MG/2 ML VIAL ONE (18:08)
[2019-07-14] MEDS ORDERED: Acetaminophen IV 1,000 MG/100 ML INFUS..BTL ONE (18:08)
[2019-07-14] MEDS ORDERED: *HR* HYDROMORPHONE 2 MG/ML VIAL ONE (18:12)
[2019-07-14] MEDS ORDERED: Ondansetron 4 MG/2 ML VIAL ONE (18:12)
[2019-07-14] MEDS ORDERED: *HR* Rocuronium Bromide 50 MG/5 ML VIAL ONE (18:22)
[2019-07-14] MEDS ORDERED: 0.9 % Sodium Chloride 500 ML ONE (20:05)
[2019-07-14] MEDS ORDERED: Naloxone 0.4 MG/ML INJ IVP PRN (20:29)
[2019-07-14] MEDS ORDERED: 0.9 % Sodium Chloride 1,000 ML IVC SCH (20:29)
[2019-07-14] MEDS ORDERED: *HR* OxyCODONE Immed Rel 5 MG TABLET PO PRN (20:29)
[2019-07-14] MEDS ORDERED: Ondansetron 4 MG/2 ML VIAL IVP PRN (20:29)
[2019-07-14] MEDS ORDERED: *HR* HYDROcodone/Acet 5/325 mg TABLET PO PRN (20:29)
[2019-07-14] MEDS ORDERED: Acetaminophen 325 MG TABLET PO PRN ×2 (20:29)
[2019-07-14] MEDS ORDERED: *HR* OxyCODONE/APAP 10/325 TABLET PO PRN (20:29)
[2019-07-14] MEDS ORDERED: Dexmedetomidine HCl 400 MCG/100 ML MLS IVC ONE (21:51)
[2019-07-14] MEDS: traZODone 50 MG TABLET PO SCH (22:40)
[2019-07-14] MEDS: hydrOXYzine pamoate 25 MG CAPSULE PO SCH (22:40)
[2019-07-14] MEDS: *HR* OxyCODONE Immed Rel 5 MG TABLET PO PRN (22:58)
[2019-07-15 02:01] LABS: Basophils # 0.1 K/mcL (0.0-0.2); Basophils % 0.3 %; Eosinophils # 0.1 K/mcL (0.0-0.6); Eosinophils % 0.4 %; Hematocrit 34.2 % (37.5-50.1); Immature Granulocytes % 0.5 % (0-4); Lymphocytes % 6.7 %; Mean Corpuscular HGB Conc 29.2 g/dL (31.6-35.5); Mean Corpuscular Hemoglobin 21.8 pg (28.0-33.3); Mean Corpuscular Volume 74.7 fL (83.0-100.0); Mean Platelet Volume 8.8 fL (9.4-12.4); Monocytes # 1.1 K/mcL (0.0-1.3); Monocytes % 7.5 %; Neutrophils # 12.7 K/mcL (1.6-8.9); Platelet Count 325 K/mcL (140-400); Red Blood Count 4.58 M/mcL (4.19-5.50); Red Cell Distribution Width 18.5 % (11.5-14.5); Segmented Neutrophils % 84.6 %
[2019-07-15 03:55] LABS: BUN/Creatinine Ratio 8 (6-26); Blood Urea Nitrogen 5 mg/dL (6-20); Calcium 8.9 mg/dL (8.6-10.3); Carbon Dioxide 26 mEq/L (23-29); Chloride 100 mEq/L (98-107); Glucose 126 mg/dL (70-105); Osmolality,Calculated 271 (280-300); Potassium 4.3 mEq/L (3.5-5.1); Sodium 131 mEq/L (136-145); eGFR For African Americans > 60 (> 60); eGFR For Non-African Americans > 60 (> 60)
[2019-07-15] MEDS: Piperacillin/Tazobactam 3.375 GM in 0.9 % Sodium Chloride Mini Bag 100 ML IVPB SCH ×3 (04:23→20:07)
[2019-07-15] MEDS: *HR* Heparin 5,000 UNIT/ML VIAL SQ SCH ×3 (04:24→20:08)
[2019-07-15] MEDS: Clindamycin 600 MG/50 ML 600 MG/50 ML IV.SOLN IVPB SCH ×3 (04:29→20:06)
[2019-07-15 05:08] LABS: Vancomycin,Trough 12 mcg/mL (5-10)
[2019-07-15] MEDS: *HR* OxyCODONE Immed Rel 5 MG TABLET PO PRN ×3 (06:16→20:07)
[2019-07-15] MEDS: Insulin LISPRO 300 UNITS/3 ML VIAL SQ SCH ×4 (08:17→20:08)
[2019-07-15] MEDS: Aspirin Enteric Coated 81 MG Tablet PO SCH (09:11)
[2019-07-15] MEDS: Gabapentin 400 MG CAPSULE PO SCH ×3 (09:11→20:07)
[2019-07-15] MEDS: *HR* HYDROcodone/Acet 5/325 mg TABLET PO PRN ×3 (09:20→23:52)
[2019-07-15] MEDS: hydrOXYzine pamoate 25 MG CAPSULE PO SCH (20:07)
[2019-07-15] MEDS: traZODone 50 MG TABLET PO SCH (20:07)
[2019-07-16] MEDS: *HR* Heparin 5,000 UNIT/ML VIAL SQ SCH ×3 (04:22→20:44)
[2019-07-16] MEDS: *HR* OxyCODONE Immed Rel 5 MG TABLET PO PRN (04:22)
[2019-07-16] MEDS: Piperacillin/Tazobactam 3.375 GM in 0.9 % Sodium Chloride Mini Bag 100 ML IVPB SCH ×3 (06:05→22:53)
[2019-07-16] MEDS: Clindamycin 600 MG/50 ML 600 MG/50 ML IV.SOLN IVPB SCH (06:05)
[2019-07-16] MEDS: Insulin LISPRO 300 UNITS/3 ML VIAL SQ SCH ×4 (07:16→20:33)
[2019-07-16] MEDS: *HR* HYDROcodone/Acet 5/325 mg TABLET PO PRN ×2 (07:18→17:15)
[2019-07-16] MEDS: Gabapentin 400 MG CAPSULE PO SCH ×3 (07:18→20:29)
[2019-07-16] MEDS: Aspirin Enteric Coated 81 MG Tablet PO SCH (07:18)
[2019-07-16 10:14] LABS: Basophils # 0.1 K/mcL (0.0-0.2); Basophils % 0.5 %; Eosinophils # 0.4 K/mcL (0.0-0.6); Eosinophils % 3.4 %; Hematocrit 33.7 % (37.5-50.1); Hemoglobin 10.2 g/dL (12.9-16.9); Immature Granulocytes % 0.4 % (0-4); Lymphocytes # 1.2 K/mcL (0.6-4.6); Lymphocytes % 10.4 %; Mean Corpuscular HGB Conc 30.3 g/dL (31.6-35.5); Mean Corpuscular Hemoglobin 22.9 pg (28.0-33.3); Mean Corpuscular Volume 75.6 fL (83.0-100.0); Mean Platelet Volume 9.2 fL (9.4-12.4); Monocytes % 8.3 %; Neutrophils # 9.1 K/mcL (1.6-8.9); Platelet Count 341 K/mcL (140-400); Red Blood Count 4.46 M/mcL (4.19-5.50); Red Cell Distribution Width 18.4 % (11.5-14.5); White Blood Count 11.8 K/mcL (4.3-11.1)
[2019-07-16 10:30] LABS: BUN/Creatinine Ratio 7 (6-26); Blood Urea Nitrogen 5 mg/dL (6-20); Calcium 9.1 mg/dL (8.6-10.3); Carbon Dioxide 29 mEq/L (23-29); Chloride 98 mEq/L (98-107); Glucose 139 mg/dL (70-105); Osmolality,Calculated 278 (280-300); Potassium 3.8 mEq/L (3.5-5.1); Sodium 134 mEq/L (136-145); eGFR For African Americans > 60 (> 60); eGFR For Non-African Americans > 60 (> 60)
[2019-07-16] MEDS: Lactobacillus 1 EACH CAP.SPRINK PO SCH ×2 (17:08→20:44)
[2019-07-16] MEDS: hydrOXYzine pamoate 25 MG CAPSULE PO SCH (20:28)
[2019-07-16] MEDS: traZODone 50 MG TABLET PO SCH (20:29)
[2019-07-17] MEDS: Piperacillin/Tazobactam 3.375 GM in 0.9 % Sodium Chloride Mini Bag 100 ML IVPB SCH ×2 (04:38→16:18)
[2019-07-17 05:32] LABS: Basophils # 0.1 K/mcL (0.0-0.2); Basophils % 0.6 %; Eosinophils # 0.8 K/mcL (0.0-0.6); Eosinophils % 7.8 %; Hematocrit 32.9 % (37.5-50.1); Hemoglobin 9.6 g/dL (12.9-16.9); Immature Granulocytes % 0.5 % (0-4); Lymphocytes # 1.1 K/mcL (0.6-4.6); Lymphocytes % 10.6 %; Mean Corpuscular HGB Conc 29.2 g/dL (31.6-35.5); Mean Corpuscular Hemoglobin 22.2 pg (28.0-33.3); Mean Platelet Volume 9.1 fL (9.4-12.4); Monocytes % 9.4 %; Neutrophils # 7.3 K/mcL (1.6-8.9); Platelet Count 379 K/mcL (140-400); Red Blood Count 4.33 M/mcL (4.19-5.50); Red Cell Distribution Width 18.6 % (11.5-14.5); Segmented Neutrophils % 71.1 %; White Blood Count 10.3 K/mcL (4.3-11.1)
[2019-07-17 05:53] LABS: BUN/Creatinine Ratio 8 (6-26); Blood Urea Nitrogen 5 mg/dL (6-20); Calcium 9.3 mg/dL (8.6-10.3); Carbon Dioxide 27 mEq/L (23-29); Chloride 97 mEq/L (98-107); Glucose 113 mg/dL (70-105); Osmolality,Calculated 288 (280-300); Potassium 3.8 mEq/L (3.5-5.1); Sodium 140 mEq/L (136-145); eGFR For African Americans > 60 (> 60); eGFR For Non-African Americans > 60 (> 60)
[2019-07-17] MEDS: *HR* Heparin 5,000 UNIT/ML VIAL SQ SCH ×2 (06:38→16:19)
[2019-07-17] MEDS: Insulin LISPRO 300 UNITS/3 ML VIAL SQ SCH ×3 (08:59→16:51)
[2019-07-17] MEDS: *HR* HYDROcodone/Acet 5/325 mg TABLET PO PRN (09:00)
[2019-07-17] MEDS: Gabapentin 400 MG CAPSULE PO SCH ×2 (09:00→16:19)
[2019-07-17] MEDS: Aspirin Enteric Coated 81 MG Tablet PO SCH (09:00)
[2019-07-17] MEDS: Lactobacillus 1 EACH CAP.SPRINK PO SCH (09:02)
[2019-07-17 16:27] VITALS: BP 132/87
[2019-07-17] MEDS ORDERED: Aminoglycoside Consult 1 EACH MC ONE (18:24)
== END 2019-07-17 18:25 ==
LOC: EMEROOARM 09:07 → 3BNU 09:07 → SUATTDRO 11:58 → 3BNU 13:11 → 2NNU 07-14 17:01
PROVIDERS: ADMIT Internal Medicine; ATTEND Internal Medicine

== ENCOUNTER 2021-04-17 10:32 | Inpatient (IN) ==
[~2021-04-17 10:32] MED LIST: Vancomycin 1,000 MG, Sodium Chloride IRRigation 1,000 ML IR ONE
[2021-04-17] MEDS ORDERED: CeFAZolin Syr 2,000MG/20 ML 2,000 MG/20 ML SYRINGE IVPB ONE (11:01)
[2021-04-17] MEDS ORDERED: Ringers Solution, Lactated 1,000 ML IVC SCH (11:15)
[2021-04-17] MEDS ORDERED: Albuterol 2.5 MG/3 ML NEBULIZER IH PRN (11:20)
[2021-04-17] MEDS ORDERED: Ondansetron 4 MG/2 ML VIAL IVP PRN ×2 (11:20→16:25)
[2021-04-17] MEDS ORDERED: *HR* OxyCODONE Immed Rel 5 MG TABLET PO PRN (11:20)
[2021-04-17] MEDS ORDERED: Vancomycin 1,000 MG, Sodium Chloride IRRigation 1,000 ML IR ONE (11:55)
[2021-04-17] MEDS ORDERED: Vancomycin 1,750 MG/517.5 ML IV.SOLN IVPB ONE (12:00)
[2021-04-17] MEDS ORDERED: Ondansetron 4 MG/2 ML VIAL ONE (12:27)
[2021-04-17] MEDS ORDERED: *HR* FentaNYL (PF) 100 MCG/2 ML VIAL ONE (12:27)
[2021-04-17] MEDS ORDERED: Sugammadex Sodium 200 MG/2 ML VIAL IV ONE (12:27)
[2021-04-17] MEDS ORDERED: *HR* Rocuronium Bromide 50 MG/5 ML VIAL ONE (12:27)
[2021-04-17] MEDS ORDERED: *HR* Succinylcholine 200 MG/10 ML VIAL IVP ONE (12:27)
[2021-04-17] MEDS ORDERED: *HR* Propofol 200 MG/20 ML VIAL IVP ONE (12:28)
[2021-04-17] MEDS ORDERED: *HR* Midazolam HCl 2 MG/2 ML VIAL ONE (12:28)
[2021-04-17] MEDS ORDERED: Lidocaine HCL 4 ML Topical Solution (Laryng-O-Jet Kit Sterile Pak) TP ONE (13:03)
[2021-04-17] MEDS ORDERED: *HR* HYDROMORPHONE 2 MG/ML VIAL ONE (13:47)
[2021-04-17] MEDS ORDERED: *HR* Labetalol 20 MG/4 ML SYRINGE IVP ONE (14:41)
[2021-04-17] MEDS: *HR* HYDROmorphone PF 0.5 MG/0.5 ML SYRINGE IVP PRN ×2 (15:36→15:53)
[2021-04-17] MEDS ORDERED: Acetaminophen 325 MG TABLET PO PRN (16:25)
[2021-04-17] MEDS ORDERED: Naloxone 0.4 MG/ML INJ IVP PRN (16:25)
[2021-04-17] MEDS ORDERED: 0.9 % Sodium Chloride 1,000 ML IVC SCH (16:25)
[2021-04-17] MEDS: *HR* HYDROcodone/Acet 5/325 mg TABLET PO PRN ×2 (17:16→22:41)
[2021-04-17] MEDS: *HR* Metoprolol 5 MG/5 ML VIAL IVP SCH (18:45)
[2021-04-17] MEDS: *HR* OxyCODONE Immed Rel 5 MG TABLET PO PRN (19:43)
[2021-04-17] MEDS: CeFAZolin 2 GM/120 ML BAG IVPB SCH (19:43)
[2021-04-17] MEDS: *HR* Labetalol 20 MG/4 ML SYRINGE IVP PRN (22:35)
[2021-04-18] MEDS: *HR* Metoprolol 5 MG/5 ML VIAL IVP SCH ×5 (00:53→22:51)
[2021-04-18 01:44] LABS: Basophils % 0.2 %; Hematocrit 43.7 % (37.5-50.1); Hemoglobin 14.2 g/dL (12.9-16.9); Lymphocytes # 0.5 K/mcL (0.6-4.6); Lymphocytes % 2.6 %; Mean Corpuscular HGB Conc 32.5 g/dL (31.6-35.5); Mean Corpuscular Hemoglobin 30.5 pg (28.0-33.3); Mean Corpuscular Volume 93.8 fL (83.0-100.0); Mean Platelet Volume 9.6 fL (9.4-12.4); Monocytes % 5.4 %; Neutrophils # 15.9 K/mcL (1.6-8.9); Platelet Count 233 K/mcL (140-400); Red Blood Count 4.66 M/mcL (4.19-5.50); Red Cell Distribution Width 16.7 % (11.5-14.5); Segmented Neutrophils % 90.8 %; White Blood Count 17.5 K/mcL (4.3-11.1)
[2021-04-18 02:06] LABS: BUN/Creatinine Ratio 10 (6-26); Blood Urea Nitrogen 8 mg/dL (6-20); Calcium 8.5 mg/dL (8.6-10.3); Carbon Dioxide 27 mEq/L (23-29); Chloride 101 mEq/L (98-107); Glucose 187 mg/dL (70-105); Osmolality,Calculated 281 (280-300); Potassium 4.6 mEq/L (3.5-5.1); Sodium 134 mEq/L (136-145); eGFR For African Americans > 60 (> 60); eGFR For Non-African Americans > 60 (> 60)
[2021-04-18] MEDS: *HR* OxyCODONE Immed Rel 5 MG TABLET PO PRN ×3 (02:22→17:22)
[2021-04-18] MEDS: *HR* HYDROcodone/Acet 5/325 mg TABLET PO PRN ×3 (05:33→20:59)
[2021-04-18] MEDS: CeFAZolin 2 GM/120 ML BAG IVPB SCH (05:34)
[2021-04-18] MEDS: *HR* Heparin 5,000 UNIT/ML VIAL SQ SCH ×2 (05:34→17:21)
[2021-04-18] MEDS ORDERED: *HR* Heparin 5,000 UNIT/ML VIAL SQ SCH (06:00)
[2021-04-18] MEDS: Aspirin Enteric Coated 81 MG Tablet PO SCH (08:12)
[2021-04-18] MEDS: lisinopriL 10 MG TABLET PO SCH (08:12)
[2021-04-18] MEDS: *HR* Labetalol 20 MG/4 ML SYRINGE IVP PRN ×2 (08:12→19:25)
[2021-04-19] MEDS: *HR* Labetalol 20 MG/4 ML SYRINGE IVP PRN ×2 (00:12→02:29)
[2021-04-19] MEDS: *HR* OxyCODONE Immed Rel 5 MG TABLET PO PRN ×2 (00:14→09:20)
[2021-04-19] MEDS: *HR* Metoprolol 5 MG/5 ML VIAL IVP SCH ×2 (06:08→12:27)
[2021-04-19] MEDS: *HR* Heparin 5,000 UNIT/ML VIAL SQ SCH (06:08)
[2021-04-19 06:37] VITALS: TEMP 97.8
[2021-04-19] MEDS: Aspirin Enteric Coated 81 MG Tablet PO SCH (09:19)
[2021-04-19] MEDS: lisinopriL 10 MG TABLET PO SCH (09:19)
[2021-04-19 12:07] VITALS: BP 144/88; PULSE 91; O2SAT 93
[2021-04-19] MEDS: *HR* HYDROcodone/Acet 5/325 mg TABLET PO PRN (12:44)
== END 2021-04-19 14:10 | disposition home health service (06) | DRG 305 ==
LOC: SAMDAY 10:32 → 2NNU 10:33
PROVIDERS: ADMIT Surgery; ATTEND Surgery